=== PATIENT | male | born 1950 ===

== ENCOUNTER 2025-02-20 06:12 | Day surgery (SDC) | payer OTHER, SELFPAY ==
[2025-02-20 07:08] LABS: Glucose - Point of Care 177 mg/dl (70-99)
[2025-02-20 07:10] VITALS: BP 131/59
[2025-02-20 07:26] VITALS: BMI 25.7
[2025-02-20 08:08] VITALS: BP 124/57
[2025-02-20 08:15] VITALS: BP 100/37
[2025-02-20 08:27] VITALS: BP 102/72
== END 2025-02-20 08:50 | disposition home or self-care (01) ==
LOC: SDS 06:12
PROVIDERS: ATTENDING PHYSICIAN Internal Medicine Gastroenterology
DX: Z12.11 Encounter for screening for malignant neoplasm of colon (principal); K63.5 Polyp of colon; Q43.8 Other specified congenital malformations of intestine; K64.8 Other hemorrhoids; R19.5 Other fecal abnormalities
CPT/HCPCS: 45385; 82962; 88305